=== PATIENT | male | born 1995 | race Two or more races ===

== ENCOUNTER 2022-12-03 14:24 | Emergency (ER) | payer MEDICAID ==
[~2022-12-03] VITALS: Ht 175.3 cm; Wt 70.3 kg
--- NOTE | 2022-12-03 14:30 | NUR ---
WALKED INTO ER C/O HEAD AND NECK DISCOMFORT S/P SLIPPED/FALL IN SHOWER THIS AM. SMALL HEMATOMA PALPATED IN LATERAL ASPECT OF HEAD. LEFT SIDE. PT DENIES LOC. PT AMBULATED TO BED WITH STEADY GAIT. AAOX4. VSS. SAFETY PRECAUTIONS IN PLACE. AWAITING MD ORDERS.
--- NOTE | 2022-12-03 14:57 | NUR ---
PT TAKEN TO CT VIA [facility].
--- NOTE | 2022-12-03 15:41 | NUR ---
Zaki jensen in [facility] - 12/03/22 at 1542 by KOSTAS pt states "my chest pain goes to my ears". pt denies vomiting, diarrhea but admits to nausea.
--- NOTE | 2022-12-03 15:43 | NUR ---
Patient discharged to home in stable condition. Written and verbal after care instructions given. Patient verbalizes understanding of instruction.
[2022-12-03 15:44] VITALS: BP 120/72
== END 2022-12-03 15:45 | disposition home or self-care (01) ==
LOC: ER 14:43
DX: S00.01XA Abrasion of scalp, initial encounter (principal); Z60.2 Problems related to living alone; W01.0XXA Fall on same level from slipping, tripping and stumbling without subsequent striking against object, initial encounter; Y93.89 Activity, other specified; Y92.89 Other specified places as the place of occurrence of the external cause; Y99.8 Other external cause status
CPT/HCPCS: 70450-TC